=== PATIENT | female | born 1930 | race African-American/Black ===

== ENCOUNTER 2021-05-04 05:01 | Emergency (ER) | payer OTHER ==
[~2021-05-04] VITALS: Ht 165.1 cm; Wt 66.0 kg
[2021-05-04] MEDS ORDERED: NITROGLYCERIN 0.4MG TABLET SL SL PRN (05:30)
[2021-05-04 06:09] LABS: BASOPHILS % 1.3 % (0.0-2.0); EOSINOPHILS % 10.6 % (0.0-5.0); HEMATOCRIT. 39.1 % (36.0-48.0); HEMOGLOBIN. 13.1 g/dL (12.0-16.0); LYMPHOCYTES % 21.1 % (20.0-50.0); MEAN CORPUSCULAR HEMOGLOBIN 31.3 pg (28.0-32.0); MEAN CORPUSCULAR VOLUME 93.9 fL (81.0-99.0); MEAN PLATELET VOLUME 8.1 fl (7.4-10.4); MONOCYTES % 6.1 % (2.0-8.0); NEUTROPHILS % 60.9 % (40.0-76.0); PLATELET 226 x1000/uL (130-400); RED BLOOD CELL COUNT 4.17 mill/uL (4.2-5.4); RED CELL DISTRIBUTION WIDTH 15.2 % (11.6-14.6)
[2021-05-04] MEDS ORDERED: MORPHINE SULFATE 4 MG/ML CPJ (NOT FOR IM USE) IV STA (06:09)
[2021-05-04] MEDS ORDERED: ONDANSETRON HCL 4MG/2ML INJ IV STA (06:09)
[2021-05-04 06:15] LABS: CHLORIDE 107 mEq/L (98-107)
[2021-05-04] MEDS ORDERED: IOHEXOL-350 100 ML BOTTLE ONE (07:22)
[2021-05-04] MEDS ORDERED: ASPIRIN 325MG EC TABLET PO ONE (09:15)
[2021-05-04 11:13] VITALS: BP 146/53
== END 2021-05-04 11:55 | disposition short-term general hospital (02) ==
LOC: EDBD 05:01 → ER 05:01
DX: R07.89 Other chest pain (principal); E78.00 Pure hypercholesterolemia, unspecified; I10 Essential (primary) hypertension
CPT/HCPCS: 36415; 71045; 71275; 74174; 80053; 83880; 84484; 85025; 85379; 93005; 96374; 96375; 99285; J2270; J2405; Q9967